=== PATIENT | male | born 1960 | race Caucasian/White ===

== ENCOUNTER 2023-02-18 18:08 | Emergency (ER) | payer OTHER ==
[~2023-02-18] VITALS: Ht 175.3 cm; Wt 124.7 kg
[2023-02-18 18:38] VITALS: BP 137/84; PULSE 82; RESP 16; TEMP 98.2; O2SAT 100
[2023-02-18 19:59] LABS: EOSINOPHILS % 2.6 % (0.0-5.0); HEMATOCRIT. 31.5 % (42.0-52.0); HEMOGLOBIN. 10.7 g/dL (14.0-18.0); LYMPHOCYTES % 15.1 % (20.0-50.0); MEAN CORPUSCULAR HEMOGLOBIN 31.4 pg (28.0-32.0); MEAN CORPUSCULAR HGB CONC 34.1 g/dL (31.0-37.0); MEAN CORPUSCULAR VOLUME 92.1 fL (80.0-94.0); MEAN PLATELET VOLUME 8.9 fl (7.4-10.4); NEUTROPHILS % 76.3 % (40.0-76.0); PLATELET 88 x1000/uL (130-400); RED BLOOD CELL COUNT 3.42 mill/uL (4.7-6.1); RED CELL DISTRIBUTION WIDTH 14.8 % (11.6-14.6); WHITE BLOOD COUNT 6.2 x1000/uL (4.5-11.0)
[2023-02-18 20:03] LABS: CLARITY URINE CLEAR (CLEAR); COLOR URINE YELLOW (YELLOW); GLUCOSE URINE NEGATIVE (NEGATIVE); KETONES URINE NEGATIVE (NEGATIVE); LEUKOCYTE ESTERASE URINE NEGATIVE (NEGATIVE); NITRITE URINE NEGATIVE (NEGATIVE); OCCULT BLOOD URINE 2+ (NEGATIVE); PH URINE 5.5 (4.5-8.0); PROTEIN URINE 3+ (NEGATIVE); SPECIFIC GRAVITY URINE 1.019 (1.005-1.030); UROBILINOGEN URINE 0.2 E.U./dL (0.2-1.0)
[2023-02-18 20:07] LABS: BACTERIA URINE NONE SEEN; SQUAMOUS EPITHELIAL CELL URINE NONE SEEN /lpf (RARE/1+); WBC URINE 0-2 /hpf (0-2); YEAST URINE NONE SEEN
[2023-02-18 20:09] LABS: INR 1.1; PARTIAL THROMBOPLASTIN TIME 31.2 sec (23.4-31.0); PROTHROMBIN TIME 11.9 sec (9.6-11.0)
[2023-02-18 20:11] LABS: CHLORIDE 110 mEq/L (98-107); INDEX HEMOLYSI 1 (1-3); INDEX ICTERIC 1 (1-4); INDEX LIPEMIC 1 (1-3); POTASSIUM 5.8 mEq/L (3.5-5.1); SODIUM 136 mEq/L (136-145)
[2023-02-18 20:23] LABS: ALANINE AMINOTRANSFERASE 25 IU/L (13-61); ALBUMIN 3.8 g/dL (3.4-5.0); ASPARTATE AMINOTRANSFERASE 11 IU/L (15-37); BILIRUBIN TOTAL 1.4 mg/dL (0.1-1.0); CALCIUM 8.3 mg/dL (8.5-10.1); CARBON DIOXIDE 22 mEq/L (21-32); CREATININE 1.5 mg/dL (0.6-1.3); GLUCOSE 155 mg/dL (70-105); NT PRO B-TYPE NATRIURETIC PEP 194 pg/mL (5-125); PROTEIN TOTAL 7.4 g/dL (6.0-8.3); TROPONIN I HIGH SENSITIVITY 14 ng/L (<78); UREA NITROGEN BLOOD 43 mg/dL (7-21)
[2023-02-18] MEDS ORDERED: FUROSEMIDE 100MG/10ML VIAL IV STA (20:53)
[2023-02-18] MEDS ORDERED: FUROSEMIDE 40MG/4ML VIAL IV NR (21:00)
[2023-02-18] MEDS ORDERED: CALCIUM CHLORIDE 1GM/10ML SYR IV ONE (21:00)
[2023-02-18] MEDS ORDERED: CEFTRIAXONE 1GM PREMIX 50 ML IV ONE (21:00)
[2023-02-18] MEDS ORDERED: DEXTROSE 50% WATER 50ML SYRINGE IV ONE (21:00)
[2023-02-18] MEDS ORDERED: SODIUM POLYSTYRENE SULFONATE 15 G/60 ML BOT PO ONE (21:00)
[2023-02-18] MEDS ORDERED: SODIUM CHLORIDE 0.9% 1,000 ML IV ONE (21:00)
[2023-02-18] MEDS ORDERED: INSULIN REGULAR (HUMULIN R) 300UNITS/3ML VIAL IV ONE (21:00)
[2023-02-18] MEDS ORDERED: SODIUM POLYSTYRENE SULFONATE 15 G/60 ML BOT PO NR (23:30)
[2023-02-18] MEDS ORDERED: INSULIN REGULAR (HUMULIN R) 300UNITS/3ML VIAL IV NR (23:30)
[2023-02-18] MEDS ORDERED: CALCIUM CHLORIDE 1GM/10ML SYR IV NR (23:30)
[2023-02-18] MEDS ORDERED: DEXTROSE 50% WATER 50ML SYRINGE IV NR (23:30)
== END 2023-02-19 01:13 | disposition left against medical advice (07) ==
LOC: ER 18:08
DX: R06.02 Shortness of breath (principal); E11.9 Type 2 diabetes mellitus without complications; I10 Essential (primary) hypertension; Z85.9 Personal history of malignant neoplasm, unspecified
CPT/HCPCS: 99285; 76700; 96374; 71045; 96375; 80053; 81003; 83880; 83690; 85025; 85610; 85730; 84484; 36415; 76857; 93005; J3490; J1815; J1940; J7030